=== PATIENT | male | born 2000 | race Caucasian/White ===

== ENCOUNTER 2021-12-05 14:33 | Outpatient (CLI) | payer BC | END 2021-12-05 14:34 | disposition home or self-care (01) | LOC: CSHMRI 14:33 | PROVIDERS: ATTEND Family Medicine | DX: M54.16 Radiculopathy, lumbar region (principal); M51.06 Intervertebral disc disorders with myelopathy, lumbar region; Q76.49 Other congenital malformations of spine, not associated with scoliosis | CPT/HCPCS: 72148 ==

== ENCOUNTER 2023-10-05 14:28 | Outpatient (CLI) | payer BC | END 2023-10-05 14:29 | disposition home or self-care (01) | LOC: CSHCT 14:28 | PROVIDERS: ATTEND Family Medicine | DX: R51.9 Headache, unspecified (principal) | CPT/HCPCS: 70450 ==